=== PATIENT | female | born 1995 | race American Indian/Alaskan Native ===

== ENCOUNTER 2017-02-18 00:26 | Emergency (ER) | payer MEDICAID ==
[2017-02-18 00:29] VITALS: BMI 27.4
[2017-02-18 00:42] VITALS: BP 118/74; PULSE 71; RESP 18; TEMP 98.1; O2SAT 99
--- NOTE | 2017-02-18 00:48 | ED PDOC ---
Arrival/HPI <Jamie Valero - Last Filed: 02/18/17 01:15> - General Historian: Patient <Michael Hodge - Last Filed: 02/18/17 14:37> - General Chief Complaint: Rib Injury Time Seen by Provider: 02/18/17 00:38 - History of Present Illness Narrative History of Present Illness (Text): 02/18/17 00:45 21 y/o female, no pmh, nkda, c/o lt. sided rib cage pain x 1 day with no fall or trauma. Aching pain, aggravated by chest and lt. rib movement, no numbness or tingling, no chest pain or shortness of breath, no palpitation, no night sweat, no urinary symptoms, no urinary or bowel incontinence or retention, no other medical or psychological complaints. (Michael Hodge) Past Medical History - Provider Review Nursing Documentation Reviewed: Yes - Pulmonary Hx Asthma: Yes - Psychiatric Hx Substance Use: No <Michael Hodge - Last Filed: 02/18/17 14:37> Family/Social History - Physician Review Nursing Documentation Reviewed: Yes Family/Social History: Unknown Family HX Smoking Status: non Hx Alcohol Use: (non) Hx Substance Use: No <Michael Hodge - Last Filed: 02/18/17 14:37> Allergies/Home Meds <Jamie Valero - Last Filed: 02/18/17 01:15> <Michael Hodge - Last Filed: 02/18/17 14:37> Allergies/Adverse Reactions: Allergies No Known Allergies Allergy (Verified 02/18/17 00:28) Review of Systems - Review of Systems Constitutional: absent: Fatigue, Fevers Eyes: absent: Vision Changes ENT: absent: Hearing Changes Respiratory: absent: SOB, Cough, Sputum, Wheezing Cardiovascular: absent: Chest Pain Gastrointestinal: absent: Abdominal Pain, Nausea, Vomiting Musculoskeletal: Arthralgias, Myalgias. absent: Back Pain, Neck Pain, Joint Swelling Neurological: absent: Headache, Dizziness, Focal Weakness, Gait Changes, Speech Changes, Facial Droop, Disequilibrium, Seizure Psychiatric: absent: Anxiety, Depression, Suicidal Ideation <Michael Hodge - Last Filed: 02/18/17 14:37> Physical Exam Vital Signs Reviewed: Yes Temperature: Afebrile Blood Pressure: Normal Pulse: Regular Respiratory Rate: Normal Appearance: Positive for: Well-Appearing, Non-Toxic, Comfortable Pain Distress: Moderate Mental Status: Positive for: Alert and Oriented X 3 - Systems Exam Head: Present: Atraumatic, Normocephalic Pupils: Present: PERRL Extroacular Muscles: Present: EOMI Conjunctiva: Present: Normal Mouth: Present: Moist Mucous Membranes Neck: Present: Normal Range of Motion Respiratory/Chest: Present: Clear to Auscultation, Good Air Exchange, Tender to Palpation (+ttp on the lt. midaxillary mid rib intercostal muscle region with the pain 100% reproducible.). No: Respiratory Distress, Accessory Muscle Use, Wheezes, Decreased Breath Sounds, Rales, Retracting, Rhonchi, Tachypneic, Other Cardiovascular: Present: Regular Rate and Rhythm, Normal S1, S2. No: Murmurs Abdomen: Present: Normal Bowel Sounds. No: Tenderness, Distention, Peritoneal Signs Back: Present: Normal Inspection Upper Extremity: Present: Normal Inspection. No: Cyanosis, Edema Lower Extremity: Present: Normal Inspection. No: Edema Neurological: Present: GCS=15, CN II-XII Intact, Speech Normal Skin: Present: Warm, Dry, Normal Color. No: Rashes Psychiatric: Present: Alert, Oriented x 3, Normal Insight, Normal Concentration <Michael Hodge - Last Filed: 02/18/17 14:37> Vital Signs Temp Pulse Resp BP Pulse Ox 02/18/17 00:41 98.1 F 71 18 118/74 99 Medical Decision Making <Jamie Valero - Last Filed: 02/18/17 01:15> - Lab Interpretations I have reviewed the lab results: Yes Interpretation: No clinic. lab abnormalty - RAD Interpretation Mixing Roll Operator: Radiologist - EKG Interpretation Interpreted by ED Physician: Yes Type: 12 lead EKG Comparison: No previous EKG avail. <Michael Hodge - Last Filed: 02/18/17 14:37> ED Course and Treatment: 02/18/17 00:47 -Chest and lt. rib xray -toradol IM -EKG -UA -Observe and reassess 02/18/17 02:20 -EKG: NSR @ 65 BPM, no ST elevation or depression, no T wave inversion. -Chest and lt. rib xray show no acute findings -UA show no UTI, no flank tenderness, no urinary symptoms. -Pain resolved with the toradol, no pleuritic pain. -Discharge home with motrin, avoid strenuous exercise or activity for 7 days, return to the ER for any new or worsening signs or symptoms. (Michael Hodge) - Lab Interpretations Lab Results: Lab Results 02/18/17 01:14: Urine Color Yellow, Urine Appearance Slight-cloudy, Urine pH 7.0 , Ur Specific [place] 1.020, Urine Protein Trace H, Urine Glucose (UA) Negative , Urine Ketones Negative, Urine Blood Large H, Urine Nitrate Negative, Urine Bilirubin Negative, Urine Urobilinogen 4.0 H, Ur Leukocyte Esterase Negative, Urine RBC 0 - 2, Urine WBC 2 - 5, Ur Epithelial Cells 3 - 4, Urine Bacteria Small - RAD Interpretation Radiology Orders: 02/18/17 00:44 CHEST TWO VIEWS (PA/LAT) [RAD] Stat RIBS LEFT [RAD] Stat chest x-ray: no active disease lt. rib xray: no left rib fracture (Michael Hodge) - EKG Interpretation EKG Interpretation (Text): 02/18/17 02:23 EKG: NSR @ 65 BPM, no ST elevation or depression, no T wave inversion. (Michael Hodge) - Medication Orders Current Medication Orders: Discontinued Medications Ketorolac Tromethamine (Toradol) 60 mg IM STAT STA Stop: 02/18/17 00:45 Last Admin: 02/18/17 01:21 Dose: 60 mg Wells Criteria for PE - Wells Criteria for Pulmonary Embolism Clinical Signs and Symptoms of DVT: No P.E is #1 Diagnosis, or Equally Likely: No Heart Rate >100: No Immobilization at least 3 days;Surgery previous 4 weeks: No Previous, objectively diagnosed PE or DVT: No Hemoptysis: No Malignancy w/treatment within 6 months, or palliative: No Total Score: 0 <Michael Hodge - Last Filed: 02/18/17 14:37> - PA / [employer] SAL[employer] REPRESENTATIVE / Resident Statement / has reviewed & agrees with the documentation as recorded. <Jamie Valero - Last Filed: 02/18/17 01:15> Disposition/Present on Arrival <Jamie Valero - Last Filed: 02/18/17 01:15> - Present on Arrival Any Indicators Present on Arrival: No History of DVT/PE: No History of Uncontrolled Diabetes: No Urinary Catheter: No History of Decub. Ulcer: No History Surgical Site Infection Following: None - Disposition Have Diagnosis and Disposition been Completed?: Yes Disposition Time: 02:22 Patient Plan: Discharge <Michael Hodge - Last Filed: 02/18/17 14:37> - Disposition Diagnosis: Acute costochondritis Disposition: HOME/ ROUTINE Condition: IMPROVED Additional Instructions: Discharge home with motrin, avoid strenuous exercise or activity for 7 days, return to the ER for any new or worsening signs or symptoms. Prescriptions: Ibuprofen [Motrin] 600 mg PO QID PRN #24 tab PRN Reason: Other Referrals: [facility] [Outside] - Follow up with primary Forms: WORK NOTE
[2017-02-18 01:48] LABS: URINE APPEARANCE SLIGHT-CLOUDY (CLEAR); URINE BILIRUBIN NEGATIVE (NEGATIVE); URINE BLOOD LARGE (NEGATIVE); URINE COLOR YELLOW (YELLOW); URINE GLUCOSE (UA) NEGATIVE (NEGATIVE); URINE KETONE NEGATIVE (NEGATIVE); URINE LEUKOCYTE ESTERASE NEGATIVE Leu/uL (NEGATIVE); URINE PROTEIN TRACE mg/dL (<30 mg/dL)
[2017-02-18 01:49] LABS: URINE RBC 0 - 2 /hpf (0-2)
[2017-02-18 01:50] LABS: URINE BACTERIA SMALL (NEG)
--- NOTE | 2017-02-18 11:15 | RAD ---
HISTORY: medical clearance COMPARISON: He is TECHNIQUE: Chest PA and lateral FINDINGS: LUNGS: No active pulmonary disease. PLEURA: No significant pleural effusion identified. No pneumothorax apparent. CARDIOVASCULAR: Normal. OSSEOUS STRUCTURES: No significant abnormalities. VISUALIZED UPPER ABDOMEN: Normal. OTHER FINDINGS: None. IMPRESSION: No active disease.
--- NOTE | 2017-02-18 11:44 | RAD ---
PROCEDURE: Radiographs of the Chest and Left Ribs. HISTORY: lt. intercostal muscle pain COMPARISON: None available. TECHNIQUE: Frontal radiograph of the chest and multiple oblique radiographs of the left ribs were obtained. FINDINGS: LEFT RIBS: No fracture or focal lesion visualized. LUNGS: Clear. PLEURA: No pneumothorax or pleural fluid. CARDIOVASCULAR: Normal sized heart. No pulmonary vascular congestion. OTHER FINDINGS: None. IMPRESSION: Unremarkable radiographs of the chest and left ribs. No left rib fracture.
--- NOTE | 2017-02-19 01:37 | CARD ---
APPROVED REPORT EKG Measurement Heart [id number] <Conclusion> Normal sinus rhythm Low voltage QRS Cannot rule out Anterior infarct, age undetermined Abnormal ECG
== END 2017-02-18 02:45 | disposition home or self-care (01) ==
LOC: ED 00:26
DX: M94.0 Chondrocostal junction syndrome [Tietze] (principal)
CPT/HCPCS: 71020; 71100; 81001; 93005; 96372; 99283; J1885